=== PATIENT | male | born 1990 | race Caucasian/White ===

== ENCOUNTER → 2016-12-28 | Outpatient (CLI) | payer BC ==
[~2016-12-28] MED LIST: ALEVE 220MG220 MG; AMBIEN5 MG PO; ATIVAN0.5 MG PO; CELEXA; CYMBALTA 30MG30 MG PO; CYMBALTA 60MG60 MG PO; FISH OIL500 MG PO; KLONOPIN 1MG1 MG PO; LEVOXYL0.025 MG PO; MULTIPLE VITAMI1 CAP PO; SEROQUEL XR150 MG PO; TRAZADONE HYDR100 MG PO; ULTRAM 50MG TAB50 MG PO; WELLBUTRIN 100100 MG PO; ZYRTEC 10MG10 MG PO
== END ==
LOC: SUN.DIA 09:10
DX: E11.65 Type 2 diabetes mellitus with hyperglycemia (principal); Z79.84 Long term (current) use of oral hypoglycemic drugs; Z68.42 Body mass index [BMI] 45.0-49.9, adult; Z71.3 Dietary counseling and surveillance; E78.5 Hyperlipidemia, unspecified; I10 Essential (primary) hypertension
CPT/HCPCS: G0108

== ENCOUNTER → 2017-01-19 | Outpatient (CLI) | payer BC | LOC: SUN.DIA 09:35 | DX: E11.65 Type 2 diabetes mellitus with hyperglycemia (principal); Z79.84 Long term (current) use of oral hypoglycemic drugs; Z68.42 Body mass index [BMI] 45.0-49.9, adult; Z71.3 Dietary counseling and surveillance; E78.5 Hyperlipidemia, unspecified; I10 Essential (primary) hypertension | CPT/HCPCS: G0108 ==